=== PATIENT | male | born 1960 | race African-American/Black ===

== ENCOUNTER 2016-10-26 13:58 | Emergency (ER) | payer OTHER ==
[~2016-10-26] VITALS: Ht 177.8 cm; Wt 102.3 kg
[2016-10-26] MEDS ORDERED: LOSA25TA2 PO (14:28)
[2016-10-26] MEDS ORDERED: ATOR20TA9 PO (14:28)
[2016-10-26] MEDS ORDERED: PHENYLEPHRINE NASAL 1%, 15ML SPRAY ONE (15:15)
[2016-10-26] MEDS ORDERED: PHENYLEPHRINE NASAL 1%, 30ML DROPS NAS ONE (15:30)
[2016-10-26] MEDS ORDERED: LOSARTAN 25MG TABLET PO ONE (15:30)
[2016-10-26 15:45] LABS: HEMOGLOBIN 13.2 g/dL (13.7-18.0); WHITE BLOOD COUNT 5.6 x10^3/uL (3.4-10)
[2016-10-26 15:58] LABS: BLOOD UREA NITROGEN 10 mg/dL (7-18)
[2016-10-26] MEDS ORDERED: SILVER NITRATE STICK TP ONE ×2 (16:23→17:05)
[2016-10-26] MEDS ORDERED: SODIUM CHLORIDE FLUSH 10ML SYR IVF ONE (17:00)
[2016-10-26] MEDS ORDERED: ONDANSETRON 2MG/ML, 2ML IVPush ONE (17:00)
[2016-10-26] MEDS ORDERED: MORPHINE SULFATE 4 MG/ML, 1ML ONE ×2 (17:05→17:26)
[2016-10-26] MEDS ORDERED: ONDANSETRON 2MG/ML, 2ML ONE (17:05)
[2016-10-26] MEDS: MORPHINE SULFATE 4 MG/ML, 1ML IVPush PRN ×2 (17:06→17:27)
[2016-10-26 19:08] VITALS: BP 198/108
== END 2016-10-26 19:53 | disposition home or self-care (01) ==
LOC: ED 19:21
DX: R04.0 Epistaxis (principal); I10 Essential (primary) hypertension
CPT/HCPCS: 30901; 36415; 80048; 82040; 85025; 85610; 85730; 96374; 96375; 99284; J2405

== ENCOUNTER 2016-10-28 12:37 | Emergency (ER) | payer OTHER ==
[~2016-10-28] VITALS: Ht 177.8 cm; Wt 100.8 kg
[~2016-10-28 12:37] MED LIST: ATOR20TA9 PO; LOSA25TA2 PO
[2016-10-28 12:39] VITALS: BP 148/85
== END 2016-10-28 13:01 | disposition home or self-care (01) ==
LOC: ED 12:55
DX: R04.0 Epistaxis (principal); I10 Essential (primary) hypertension
CPT/HCPCS: 99281